=== PATIENT | female | born 1965 | race Caucasian/White ===

== ENCOUNTER 2020-08-22 18:48 | Emergency (ER) | payer BC, OTHER ==
[~2020-08-22] VITALS: Ht 170.2 cm; Wt 86.2 kg
--- NOTE | 2020-08-22 18:48 | NUR ---
BROUGHT INTO TENT AND TRIAGED. AWAITING AVAILABLE ER BED.
[2020-08-22 18:57] VITALS: BP_SYST 162
--- NOTE | 2020-08-22 19:44 | NUR ---
DR. SAMANO TO TENT TO EVALUATE PT
--- NOTE | 2020-08-22 20:02 | NUR ---
PT TO [facility], REPORT TO JESSA CHÁVEZ
--- NOTE | 2020-08-22 20:05 | NUR ---
Pt presents to ER c/o L eye reddness and high blood pressure. Pt reports taking her blood pressure at home aand seeing an increase in presure. Pt has not been diagnosed with high blood pressure and does not take medication at home. Denies n/v, blurry vision, numbness, cp .
--- NOTE | 2020-08-22 20:10 | NUR ---
# 20 gauge angiocath placed to RAC. Use of asceptic technique. Opsite placed over site. Blood return noted. Flushed with 10 cc of normal saline. No evidence of infiltration noted. Patient tolerated well.
[2020-08-22] MEDS ORDERED: hydrALAZINE HCL 20 MG/ML VIAL ONE (20:20)
--- NOTE | 2020-08-22 20:28 | NUR ---
Pt given hydralazine, Vitals retaken before medication administration. BP 174/113
[2020-08-22] MEDS ORDERED: hydrALAZINE HCL 20 MG/ML VIAL IVP ONE ×3 (20:30→22:00)
--- NOTE | 2020-08-22 21:00 | NUR ---
Pt blood pressure retake, increase in BP reported to Dr Mcneal. 181/109
--- NOTE | 2020-08-22 21:57 | NUR ---
BP 183/118, HR 86.
--- NOTE | 2020-08-22 22:24 | NUR ---
Fareed davidson in [facility] - 08/22/20 at 2325 by [email or web address] Aprazo
--- NOTE | 2020-08-22 22:24 | NUR ---
Apresoline [address] IV [address] as Dr[address] Fredis pritchett.
--- NOTE | 2020-08-22 23:44 | NUR ---
BP 167/82, HR 88
[2020-08-23 01:03] VITALS: BP_SYST 162
--- NOTE | 2020-08-23 01:03 | NUR ---
Patient given written and verbal discharge instructions and verbalizes understanding. ER MD discussed with patient the results and treatment provided. Patient in stable condition. ID arm band removed. IV catheter removed intact and dressing applied, no active bleeding. Rx of Lisinopril given. Patient educated on pain management and to follow up with PMD. Pain Scale 0/10. Opportunity for questions provided and answered.
== END 2020-08-23 01:03 | disposition home or self-care (01) ==
LOC: SED 18:48
DX: I10 Essential (primary) hypertension (principal)
CPT/HCPCS: 96374; 96376; 99284; J0360